=== PATIENT | female | born 1985 | race Two or more races ===

== ENCOUNTER 2020-08-18 08:24 | Outpatient (REF) | payer OTHER, SELFPAY | END 2020-08-18 08:25 | disposition home or self-care (01) | LOC: HO.LAB 08:24 | PROVIDERS: Visit Provider Internal Medicine | DX: Z20.822 Contact with and (suspected) exposure to COVID-19 (principal) | CPT/HCPCS: C9803; U0003; U0005 ==

== ENCOUNTER 2020-10-30 15:04 | Outpatient (REF) | payer OTHER, SELFPAY | END 2020-10-30 15:05 | disposition home or self-care (01) | LOC: HO.LAB 15:04 | PROVIDERS: PCP Internal Medicine; Visit Provider Internal Medicine | DX: Z20.822 Contact with and (suspected) exposure to COVID-19 (principal) | CPT/HCPCS: C9803; U0003; U0005 ==

== ENCOUNTER 2020-12-17 10:31 | Outpatient (REF) | payer OTHER, SELFPAY ==
[2020-12-17 12:07] LABS: COVID-19 Test Negative (Negative)
== END 2020-12-17 10:32 | disposition home or self-care (01) ==
LOC: HO.LAB 10:31
PROVIDERS: PCP Internal Medicine; Visit Provider Internal Medicine
DX: Z20.822 Contact with and (suspected) exposure to COVID-19 (principal)
CPT/HCPCS: 36415; 87635; C9803

== ENCOUNTER 2021-01-07 11:16 | Outpatient (REF) | payer OTHER, SELFPAY ==
[2021-01-07 13:32] LABS: MANUAL DIFF FLAG NO
[2021-01-07 13:34] LABS: Basophils Percent Auto 0.3 % (0-2); Eosinophils Absolute Auto 0.1 X10*3/uL (0.0-0.4); Eosinophils Percent Auto 0.7 % (0-4); Hematocrit 35.7 % (37-47); Hemoglobin 11.6 g/dl (12.0-16.0); Imm Gran Abs Auto 0.03 X10*3/uL (0.00-0.03); Imm Gran Pct Auto 0.4 % (0.0-0.4); Lymphocytes Absolute Auto 1.9 X10*3/uL (1.2-4.9); Lymphocytes Percent Auto 25.5 % (20-40); Mean Corpuscular HGB Conc 32.5 g/dl (31.0-35.0); Mean Corpuscular Hemoglobin 29.4 pg (27.0-33.0); Mean Corpuscular Volume 90.6 fL (80-98); Mean Platelet Volume 11.2 fL (9.4-12.3); Monocytes Absolute Auto 0.4 X10*3/uL (0.1-1.2); Neutrophils Percent Auto 68.1 % (45-73); Platelet Count 275 X10*3/uL (160-400); Red Blood Count 3.94 X10*6/uL (4.20-5.50); Red Cell Distribution Width 12.2 % (11.0-16.0); White Blood Count 7.4 X10*3/uL (4.8-10.8)
[2021-01-07 13:54] LABS: Anion Gap 11 (12-20); Blood Urea Nitrogen 11 mg/dL (9-16); Calcium 9.4 mg/dL (8.4-10.2); Carbon Dioxide 25 mmol/L (22-29); Chloride 109 mmol/L (96-108); Cholesterol 131 mg/dL; Estimated Glomerular Filt Rate > 60; Glucose Random 80 mg/dL (60-115); Potassium 4.3 mmol/L (3.3-5.1); Sodium 141 mmol/L (135-145)
[2021-01-10 13:51] LABS: TS Negative Control Passed; TS Panel A 0; TS Panel B 0; TS Positive Control Passed; TSpotTB Negative (SeeBelow)
== END 2021-01-07 11:17 | disposition home or self-care (01) ==
LOC: HO.10HDL 11:16
PROVIDERS: Visit Provider Internal Medicine
DX: Z02.1 Encounter for pre-employment examination (principal); J30.1 Allergic rhinitis due to pollen; R63.5 Abnormal weight gain; Z72.0 Tobacco use
CPT/HCPCS: 36415; 80048; 82465; 85025; 86481

== ENCOUNTER 2021-01-16 11:21 | Outpatient (REF) | payer OTHER, SELFPAY | END 2021-01-16 11:22 | disposition home or self-care (01) | LOC: HO.LAB 11:21 | PROVIDERS: PCP Internal Medicine; Visit Provider Internal Medicine | DX: Z20.822 Contact with and (suspected) exposure to COVID-19 (principal) | CPT/HCPCS: C9803; U0003; U0005 ==

== ENCOUNTER 2022-04-06 15:06 | Outpatient (REF) | payer OTHER, SELFPAY ==
[2022-04-06 15:23] LABS: MANUAL DIFF FLAG NO
[2022-04-06 15:38] LABS: Basophils Percent Auto 0.2 % (0-2); Eosinophils Absolute Auto 0.1 X10*3/uL (0.0-0.4); Eosinophils Percent Auto 0.6 % (0-4); Hematocrit 35.9 % (37.0-47.0); Hemoglobin 11.6 g/dl (12.0-16.0); Imm Gran Abs Auto 0.03 X10*3/uL (0.00-0.03); Imm Gran Pct Auto 0.3 % (0.0-0.4); Lymphocytes Absolute Auto 2.1 X10*3/uL (1.2-4.9); Mean Corpuscular HGB Conc 32.3 g/dl (31.0-35.0); Mean Corpuscular Hemoglobin 28.7 pg (27.0-33.0); Mean Corpuscular Volume 88.9 fL (80.0-98.0); Mean Platelet Volume 10.2 fL (9.4-12.3); Monocytes Absolute Auto 0.7 X10*3/uL (0.1-1.2); Monocytes Percent Auto 7.3 % (2-11); Neutrophils Absolute Auto 6.1 x10*3/uL (2.0-8.3); Neutrophils Percent Auto 68.6 % (45-73); Platelet Count 304 X10*3/uL (160-400); Red Blood Count 4.04 X10*6/uL (4.20-5.50); Red Cell Distribution Width 12.8 % (11.0-16.0); White Blood Count 8.9 X10*3/uL (4.8-10.8)
[2022-04-06 15:40] LABS: Prothrombin Time 10.9 SEC (10.0-13.1)
[2022-04-06 15:43] LABS: Partial Thromboplastin Time 30.2 SEC (26.0-36.4)
[2022-04-06 16:04] LABS: Alanine Aminotransferase 11 U/L (0-31); Albumin Level 4.1 g/dL (3.5-5.0); Alkaline Phosphatase 85 U/L (39-117); Anion Gap 8 (12-20); Aspartate Amino Transferase 13 U/L (5-31); Bilirubin Total 0.5 mg/dL (0.0-1.0); Blood Urea Nitrogen 9 mg/dL (9-16); Calcium 9.2 mg/dL (8.4-10.2); Carbon Dioxide 27 mmol/L (22-29); Chloride 107 mmol/L (96-108); Estimated Glomerular Filt Rate > 60; Glucose Random 88 mg/dL (60-115); Sodium 138 mmol/L (135-145); Total Protein 6.6 g/dL (6.5-8.0)
[2022-04-06 16:33] LABS: HCG Quantitative < 2 mIU/mL
[2022-04-07 04:32] LABS: HBS Num1 > 1000.00 mIU/mL (0-7.99); HIV AB/AG Nonreactive (Nonreactive); HIV Num 1 0.05 S/CO (0.00-0.99); ~HepC Num1 0.09 S/CO (0.00-0.79); ~Hepatitis B Surface Antibody REACTIVE (Nonreactive); ~Hepatitis C Antibody Nonreactive (Nonreactive)
== END 2022-04-06 15:07 | disposition home or self-care (01) ==
LOC: HO.LAB 15:06
PROVIDERS: PCP Internal Medicine; Visit Provider Internal Medicine
DX: Z01.818 Encounter for other preprocedural examination (principal)
CPT/HCPCS: 36415; 80053; 84702; 85025; 85610; 85730; 86706; 86803; 87389

== ENCOUNTER 2022-07-22 13:22 | Outpatient (REF) | payer OTHER, SELFPAY ==
[2022-07-22 14:14] LABS: Influenza A PCR NEGATIVE (Negative); Influenza B PCR NEGATIVE (Negative); Resp Syncy Virus RNA Qual PCR NEGATIVE (Negative); SARS COV2 PCR INHOUSE NEGATIVE (Negative)
== END 2022-07-22 13:23 | disposition home or self-care (01) ==
LOC: HO.LNP 13:22
PROVIDERS: Visit Provider Internal Medicine
DX: Z01.818 Encounter for other preprocedural examination (principal); Z20.822 Contact with and (suspected) exposure to COVID-19
CPT/HCPCS: 0241U

== ENCOUNTER 2022-07-29 10:12 | Outpatient (REF) | payer OTHER, SELFPAY ==
[2022-07-29 10:37] LABS: Prothrombin Time 11.2 SEC (10.0-13.1)
[2022-07-29 10:40] LABS: Partial Thromboplastin Time 30.9 SEC (26.0-36.4)
[2022-07-29 11:52] LABS: HCG Quantitative < 2 mIU/mL
[2022-07-29 11:54] LABS: Anion Gap 12 (12-20)
[2022-07-29 11:58] LABS: Alanine Aminotransferase 10 U/L (0-31); Albumin Level 4.2 g/dL (3.5-5.0); Alkaline Phosphatase 84 U/L (39-117); Aspartate Amino Transferase 10 U/L (5-31); Bilirubin Total 0.7 mg/dL (0.0-1.0); Blood Urea Nitrogen 9 mg/dL (9-16); Calcium 9.3 mg/dL (8.4-10.2); Carbon Dioxide 25 mmol/L (22-29); Chloride 110 mmol/L (96-108); Estimated Glomerular Filt Rate > 60; Glucose Random 91 mg/dL (60-115); Potassium 4.7 mmol/L (3.3-5.1); Sodium 142 mmol/L (135-145); Total Protein 6.7 g/dL (6.5-8.0)
[2022-07-30 10:22] LABS: HBS Num1 > 1000.00 mIU/mL (0-7.99); HIV AB/AG Nonreactive (Nonreactive); HIV Num 1 0.06 S/CO (0.00-0.99); ~HepC Num1 0.11 S/CO (0.00-0.79); ~Hepatitis B Surface Antibody REACTIVE (Nonreactive); ~Hepatitis C Antibody Nonreactive (Nonreactive)
== END 2022-07-29 10:13 | disposition home or self-care (01) ==
LOC: HO.LAB 10:12
PROVIDERS: PCP Internal Medicine; Visit Provider Internal Medicine
DX: Z13.89 Encounter for screening for other disorder (principal)
CPT/HCPCS: 36415; 80053; 84702; 85610; 85730; 86706; 86803; 87389

== ENCOUNTER 2022-08-16 13:30 | Outpatient (REF) | payer OTHER, SELFPAY ==
[2022-08-16 13:50] LABS: MANUAL DIFF FLAG NO
[2022-08-16 14:29] LABS: Basophils Percent Auto 0.3 % (0-2); Eosinophils Absolute Auto 0.1 X10*3/uL (0.0-0.4); Eosinophils Percent Auto 0.7 % (0-4); Hematocrit 35.6 % (37.0-47.0); Hemoglobin 11.8 g/dl (12.0-16.0); Imm Gran Abs Auto 0.05 X10*3/uL (0.00-0.03); Imm Gran Pct Auto 0.6 % (0.0-0.4); Lymphocytes Absolute Auto 2.8 X10*3/uL (1.2-4.9); Mean Corpuscular HGB Conc 33.1 g/dl (31.0-35.0); Mean Corpuscular Hemoglobin 28.9 pg (27.0-33.0); Mean Corpuscular Volume 87.3 fL (80.0-98.0); Mean Platelet Volume 9.9 fL (9.4-12.3); Monocytes Absolute Auto 0.5 X10*3/uL (0.1-1.2); Monocytes Percent Auto 5.1 % (2-11); Neutrophils Absolute Auto 5.6 x10*3/uL (2.0-8.3); Neutrophils Percent Auto 62.3 % (45-73); Platelet Count 337 X10*3/uL (160-400); Red Blood Count 4.08 X10*6/uL (4.20-5.50); White Blood Count 8.9 X10*3/uL (4.8-10.8)
== END 2022-08-16 13:31 | disposition home or self-care (01) ==
LOC: HO.LAB 13:30
PROVIDERS: PCP Internal Medicine; Visit Provider Internal Medicine
DX: Z01.818 Encounter for other preprocedural examination (principal)
CPT/HCPCS: 36415; 85025

== ENCOUNTER → 2023-08-10 09:36 | Outpatient (BNVA) | payer OTHER, SELFPAY | PROVIDERS: PCP Internal Medicine; Visit Provider Physical Medicine & Rehabilitation ==

== ENCOUNTER 2023-08-16 09:25 | Outpatient (REF) | payer SELFPAY ==
--- NOTE | ~2023-08-16 | XR_ITS ---
EXAMINATION: XR HAND/WRIST, RIGHT CLINICAL INFORMATION: Pain in right hand. COMPARISON: None TECHNIQUE: PA, lateral, oblique, and scaphoid views of the right hand and wrist. FINDINGS: Mineralization appears normal. Alignment is anatomic. Mild degenerative changes in the triscaphe joint. No fracture. XR/XR hand wrist RT IMPRESSION: Mild degenerative changes in the wrist.
== END 2023-08-16 09:26 | disposition home or self-care (01) ==
LOC: HO.HOSX 09:25
PROVIDERS: PCP Internal Medicine; Visit Provider Physical Medicine & Rehabilitation
DX: M24.131 Other articular cartilage disorders, right wrist (principal)
CPT/HCPCS: 73110; 73130; 99202

== ENCOUNTER 2023-08-16 09:25 | Outpatient (AMB) | payer SELFPAY ==
--- NOTE | 2023-08-16 09:31 | A.OFFVIS_ITS ---
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 Patient reports ongoing pain for over 2 years as well as a painful lump located at the dorsal aspect of hand. She was seen by her PCP, Dr. Smith who referred patient to office. States intermittent numbness in all her fingers and she frequently drops items. Finds support with OTC wrist brace, Tylenol and Aleve. Denies injury. No previous treatment. Allergies No Known Allergies Allergy (Unverified 08/16/23 09:38) Medication List - Last Reconciled 08/16/23 by Pat Meza MD No Known Home Meds HPI Comments Details: Right handed. Says noted cyst on dorsal wrist for many years, but was never painful until 2 years ago. Changes in size intermittently. Also has radial wrist/base of thumb pain. And sometimes numbness on all fingers, not necessarily based on time or sleep, but attributes it to work as [employer]. Reports swelling of hand or fingers or thenar eminence. If she takes alleve and brace, it would improve. Although worsened since 2 months ago. No other joint pain such as this. But notes clicking on both knees when squats low. Family history - denies lupus or rheumatologic conditions [facility] Social History (Updated 08/16/23 @ 09:38 by Libia Stanley [facility]) Patient Tobacco Use Status: Current everyday Tobacco user Current occupational status: employed Current occupation: [employer]RI[employer], right hand dominant Review of Systems Const All systems reviewed & are unremarkable except as noted in HPI and below Physical Exam Vital Signs: BMI result Body Mass Index 27.4 Constitutional: Patient appears to be in no acute distress, well nourished and well developed. MSK: Inspection reveals appropriate head and neck positioning. Ganglion cyst right dorsal wrist. Soft, non indurated. Tender to touch. No joint effusion noted. No deformity noted. No intrinsic hand weakness noted. No atrophy noted. Tamra test negative. Carpal compression test positive right. Tinel sign positive on right wrist but negative on elbow. No triggering. Strength is 5/5 in all muscle groups tested. No increased tone noted. Neurological: Neurologic examination of the upper and lower extremities was nonfocal with intact sensation, muscle stretch reflexes and without focal motor deficits . Joiner?s negative bilaterally. Gait is non-antalgic without loss of balance. Results Reviewed Results Reviewed: I independently reviewed the results of the following: Right hand x-ray done in the office today showed preserved joint spaces. Assessment & Plan Assessment & Plan (1) Carpal tunnel syndrome of right wrist: Code(s): G56.01 - Carpal tunnel syndrome, right upper limb Category: Medical (2) Ganglion cyst of dorsum of right wrist: Code(s): M67.431 - Ganglion, right wrist Category: Medical Plan She has a ganglion cyst that has come and gone over the last 10 years perhaps. We discussed options for aspiration vs surgical removal. She describes signs for CTS. We will confirm with EMG. To be scheduled. Wear wrist splint at night. If EMG shows moderate-severe CTS, then will refer her to Dr. Murrieta for both CTS and ganglion cyst. In meantime, can trial topical diclofenac BID prn, instructions and precautions given. Assessment and plan discussed with patient, and patient was agreeable. All questions were answered thoroughly. Pat Meza MD, ANNA Board Certified, [place] [employer] and [employer] (ABPMR) Board Certified, [place] [employer] (ABEM) Orders: Orders NE electromyogram (EMG) Today G56.01 - Carpal tunnel syndrome, right upper limb XR hand wrist RT Today M79.643 - Pain in unspecified hand NE nerve conduction velocity Today G56.01 - Carpal tunnel syndrome, right upper limb Medications: New diclofenac sodium 1% apply to right wrist or hand twice a day as needed 2 grams topical BID 100 grams 0RF Coding Level of Care Code New Pt Level 4 (87589) Diagnoses Carpal tunnel syndrome of right wrist G56.01 Ganglion cyst of dorsum of right wrist M67.431
[2023-08-16 09:38] VITALS: BMI 27.4
== END 2023-08-16 10:03 | disposition home or self-care (01) ==
PROVIDERS: PCP Internal Medicine; Visit Provider Physical Medicine & Rehabilitation
DX: G56.01 Carpal tunnel syndrome, right upper limb (principal); M67.431 Ganglion, right wrist
CPT/HCPCS: 99204